=== PATIENT | male | born 1950 | race Caucasian/White ===

== ENCOUNTER 2019-02-08 11:05 | Day surgery (SDC) | payer MEDICARE, BC ==
[2019-02-08] VITALS (8 sets, daily range): BP systolic 96–130; BP diastolic 55–73; PULSE 60–68; RESP 14–24; Ht 167.6 cm; Wt 70.8 kg
[~2019-02-08] VITALS: Ht 167.6 cm; Wt 70.8 kg
[2019-02-08] MEDS ORDERED: DOCUSATE SODIUM (12:04)
[2019-02-08] MEDS ORDERED: OMEPRAZOLE (12:04)
[2019-02-08] MEDS ORDERED: VIT D3 (12:04)
[2019-02-08] MEDS ORDERED: ZOFRAN (12:04)
[2019-02-08] MEDS ORDERED: METOPROLOL (12:04)
[2019-02-08] MEDS ORDERED: MULTIVITAMINS (12:04)
[2019-02-08] MEDS ORDERED: PANTOPRAZOLE (12:04)
[2019-02-08] MEDS ORDERED: FERROUS SULFATE (12:04)
[2019-02-08] MEDS ORDERED: LIDOCAINE 2% (SDV) 5 ML INJ ONE (13:42)
[2019-02-08] MEDS ORDERED: PROPOFOL 40 ML ONE (13:42)
[2019-02-08] MEDS ORDERED: FENTAnyl 50 MCG/ML VIAL ONE (13:42)
[2019-02-08] MEDS ORDERED: PROPOFOL 200 MG INJ ONE (13:42)
--- NOTE | 2019-02-08 13:42 | PREAC ---
Date/Time of Note Date/Time of Note DATE: 02/08/19 TIME: 13:40 Anesthesia Eval and Record Evaluation Time Pre-Procedure Interview DATE: 02/08/19 TIME: 13:40 Age 68 Sex male NPO: 8 hrs Preoperative diagnosis HISTORY OF ESOPHAGEAL CANCER Planned procedure EGD WITH BIOPSIES Past Medical History Past Medical History: Includes (HIATAL HERNIA) Cardio: HTN Surgery & Anesthesia Issues No known issue Meds Anticoagulation: No Beta Silvia within 24 hr: Yes Reported Medications [Metoprolol] No Conflict Check 02/08/19 [Zofran] No Conflict Check 02/08/19 [Docusate Sodium] No Conflict Check 02/08/19 [Vit D3] No Conflict Check 02/08/19 [Omeprazole] No Conflict Check 02/08/19 [Ferrous Sulfate] No Conflict Check 02/08/19 [Pantoprazole] No Conflict Check 02/08/19 [Multivitamins] No Conflict Check 02/08/19 Meds reviewed: Yes Allergies Coded Allergies: No Known Allergy (Unverified , 02/08/19) Allergies Reviewed: Yes Labs/Studies Labs Reviewed: Reviewed by anesthesiologist test: N/A Pre-procedure Exam Airway: Adequate mouth opening, Adequate thyromental dist Mallampati: Mallampati II Teeth: Normal Lung: Normal Heart: Normal ASA Physical Status ASA physical status: 2 Emergency: None Planned Anesthetic General/MAC: MAC Planned Pain Management Parenteral pain med Pre-operative Attestations Prior to commencing anesthesia and surgery, the patient was re-evaluated, there was verification of: *The patient's identity *The results of appropriate recent lab work and preoperative vital signs *The above evaluation not changing prior to induction *Anesthetic plan, risk benefits, alternative and complications discussed with patient/family; questions answered; patient/family understands, accepts and wishes to proceed. Adama Munoz M.D. Feb 08, 2019 13:42
--- NOTE | 2019-02-08 13:58 | PAC ---
Date/Time of Note Date/Time of Note DATE: 02/08/19 TIME: 13:57 Post-Anesthesia Notes Post-Anesthesia Note Last documented vital signs HR 77 RR 14 BP 114/75 T 98.1 Activity: WNL Respiratory function: WNL Cardiovascular function: WNL Mental status: Baseline Pain reasonably controlled: Yes Hydration appropriate: Yes Nausea/Vomiting absent: Yes Adama Munoz M.D. Feb 08, 2019 13:58
== END 2019-02-08 16:12 | disposition home or self-care (01) ==
LOC: GIL 11:05
PROVIDERS: ATTEND Internal Medicine Gastroenterology
DX: K44.9 Diaphragmatic hernia without obstruction or gangrene (principal); K20.9 Esophagitis, unspecified; K29.30 Chronic superficial gastritis without bleeding; Z85.01 Personal history of malignant neoplasm of esophagus
CPT/HCPCS: 43239; 88305; 88312; 88313; J3010